=== PATIENT | male | born 1955 | race Two or more races ===

== ENCOUNTER 2018-07-10 14:59 | Inpatient (IN) | payer OTHER ==
[~2018-07-10] VITALS: Ht 170.2 cm; Wt 87.8 kg
[2018-07-10 16:21] LABS: Basophils # (auto) 0.1 uL; Basophils % (auto) 1.3 % (0.0-2.0); Eosinophils # (auto) 0.1 uL; Eosinophils % (auto) 1.1 % (0.0-7.0); Hematocrit 47.3 % (41.0-53.0); Hemoglobin 16.6 g/dL (13.5-17.5); Lymphocytes # (auto) 1.4 uL; Lymphocytes % (auto) 24.4 % (10.0-50.0); Mean Corpuscular Hemoglobin 31.4 pg (28.0-32.0); Mean Corpuscular Volume 89.7 fL (80.0-100.0); Monocytes # (auto) 0.3 uL; Monocytes % (auto) 5.1 % (0.0-12.0); Neutrophils % (auto) 68.1 % (37.0-80.0); Platelet Count (auto) 141 10^3/uL (140-450); Red Blood Cells 5.27 10^6/uL (4.5-5.90); Red Cell Distribution Width 13.5 % (11.8-14.3); White Blood Cell 5.8 10^3/uL (4.4-10.8)
[2018-07-10 16:33] LABS: Alanine Aminotransferase 19 U/L (16-61); Albumin 3.4 g/dL (3.4-5.0); Anion Gap 8 (5-15); Aspartate Aminotransferase 14 U/L (15-37); BUN/Creatinine Ratio 10.9; Blood Urea Nitrogen 10 mg/dL (7-18); Calcium 8.2 mg/dL (8.5-10.1); Carbon Dioxide 26 mmol/L (21-32); Chloride 103 mmol/L (98-107); GFR African American 107 mL/min; GFR Non-African American 88 mL/min; Glucose 254 mg/dL (74-106); Magnesium 1.9 mg/dL (1.6-2.6); Potassium 3.7 mmol/L (3.5-5.1); Sodium 137 mmol/L (136-145)
[2018-07-10 16:37] LABS: Alkaline Phosphatase 94 U/L (45-117); Bilirubin, Total 1.1 mg/dL (0.2-1.0)
[2018-07-10 17:11] LABS: INR 1.15 (0.9-1.15); Prothrombin Time 12.5 sec (9.27-12.13)
[2018-07-10 17:12] LABS: Partial Thromboplastin Time 24.7 sec (23.78-33.04)
[2018-07-10] MEDS ORDERED: LACTULOSE 20Gm/30ML SOLN PO PRN (22:00)
[2018-07-10] MEDS ORDERED: ONDANSETRON HCL 4 MG/2 ML VIAL IV PRN (22:00)
[2018-07-10] MEDS ORDERED: ACETAMINOPHEN 500 MG TAB PO PRN (22:00)
[2018-07-10] MEDS ORDERED: HYDROcodone-ACET 5/325MG TAB PO PRN (22:00)
[2018-07-10] MEDS: ATORVASTATIN 20 MG TAB PO SCH (22:28)
[2018-07-10 23:05] VITALS: BP 135/84
[2018-07-11 04:30] VITALS: BP 125/70
[2018-07-11] MEDS ORDERED: DEXTROSE (50%) 50ML SYRG IV PRN (05:00)
[2018-07-11 06:10] LABS: Basophils # (auto) 0 uL; Basophils % (auto) 1.1 % (0.0-2.0); Eosinophils # (auto) 0.1 uL; Eosinophils % (auto) 2.9 % (0.0-7.0); Hematocrit 43.2 % (41.0-53.0); Hemoglobin 15.4 g/dL (13.5-17.5); Lymphocytes # (auto) 1.5 uL; Lymphocytes % (auto) 33.1 % (10.0-50.0); Mean Corpuscular Hemoglobin 31.8 pg (28.0-32.0); Mean Corpuscular Hgb Conc. 35.6 g/dL (32.0-36.0); Mean Corpuscular Volume 89.3 fL (80.0-100.0); Monocytes # (auto) 0.3 uL; Monocytes % (auto) 7.3 % (0.0-12.0); Neutrophils # (auto) 2.6 uL; Neutrophils % (auto) 55.6 % (37.0-80.0); Nucleated Red Blood Cells % 0.2 %; Platelet Count (auto) 118 10^3/uL (140-450); Red Blood Cells 4.83 10^6/uL (4.5-5.90); White Blood Cell 4.7 10^3/uL (4.4-10.8)
[2018-07-11 06:29] LABS: BUN/Creatinine Ratio 10.2; Calcium 8.2 mg/dL (8.5-10.1); Potassium 3.6 mmol/L (3.5-5.1)
[2018-07-11] MEDS: ACCU-CHEK COMFORT CURVE STRIP VI SCH ×4 (06:40→22:00)
[2018-07-11] MEDS: InsuLIN REG 1unit/0.01ml Soln (100units/ml) SC SCH ×4 (06:40→22:00)
[2018-07-11 07:56] VITALS: BP 134/102
[2018-07-11 08:00] VITALS: BP 134/102
[2018-07-11] MEDS: ENOXAPARIN SOD 40 MG/0.4 ML SYRINGE SC SCH (08:27)
[2018-07-11] MEDS: ASPirin 81 mg TAB PO SCH (08:27)
[2018-07-11] MEDS: LISINOPRIL 10 MG TAB PO SCH (08:27)
[2018-07-11] MEDS ORDERED: amLODIPine BESYLATE 5 MG TAB PO ONE ×2 (11:45→12:45)
[2018-07-11 12:02] VITALS: BP 134/74
[2018-07-11] MEDS ORDERED: LORazepam 2MG/ML-1ML VIAL IM ONE (15:45)
[2018-07-11 16:44] VITALS: BP 120/70
[2018-07-11 21:30] VITALS: BP 111/57
[2018-07-11] MEDS: ATORVASTATIN 20 MG TAB PO SCH (23:19)
[2018-07-12 05:00] VITALS: BP 93/57
[2018-07-12] MEDS: ACCU-CHEK COMFORT CURVE STRIP VI SCH ×4 (07:00→21:57)
[2018-07-12] MEDS: InsuLIN REG 1unit/0.01ml Soln (100units/ml) SC SCH ×4 (07:00→21:57)
[2018-07-12 08:00] VITALS: BP 113/65
[2018-07-12 08:41] LABS: Urine Bacteria NONE SEEN /hpf (None Seen); Urine Blood Negative /uL (Negative); Urine Hyaline Cast FEW /lpf (0 - 2); Urine Mucus FEW (None Seen); Urine Specific Gravity 1.021 (1.001-1.035); Urine WBC 2 /hpf (0 - 3)
[2018-07-12 09:00] VITALS: BP 113/65
[2018-07-12 09:01] LABS: Alcohol, Urine < 3.0 mg/dL (0-5); Amphetamine Screen, Urine POSITIVE (NEGATIVE); Barbiturate Scree,Urine NEGATIVE (NEGATIVE); Benzodiazephine Screen, Urine NEGATIVE (NEGATIVE); Cannabinoid Screen, Urine NEGATIVE (NEGATIVE); Cocaine Screen, Urine NEGATIVE (NEGATIVE); Opiate Scree,Urine NEGATIVE (NEGATIVE); Phencyclidine Screen, Urine NEGATIVE (NEGATIVE)
[2018-07-12] MEDS: amLODIPine BESYLATE 5 MG TAB PO SCH ×2 (09:44→10:00)
[2018-07-12] MEDS: LISINOPRIL 10 MG TAB PO SCH ×2 (09:44→10:00)
[2018-07-12] MEDS: ASPirin 81 mg TAB PO SCH (09:55)
[2018-07-12] MEDS: ENOXAPARIN SOD 40 MG/0.4 ML SYRINGE SC SCH (09:55)
[2018-07-12] MEDS ORDERED: amLODIPine BESYLATE 5 MG TAB PO SCH (10:00)
[2018-07-12 13:00] VITALS: BP 139/53
[2018-07-12 17:26] VITALS: BP 127/72
[2018-07-12 21:30] VITALS: BP 128/65
[2018-07-12] MEDS: ATORVASTATIN 20 MG TAB PO SCH (22:14)
[2018-07-13 05:00] VITALS: BP 126/67
[2018-07-13] MEDS: InsuLIN REG 1unit/0.01ml Soln (100units/ml) SC SCH ×4 (07:00→22:00)
[2018-07-13] MEDS: ACCU-CHEK COMFORT CURVE STRIP VI SCH ×4 (07:04→22:00)
[2018-07-13 08:00] VITALS: BP 120/77
[2018-07-13 08:53] VITALS: BP 120/77
[2018-07-13] MEDS: amLODIPine BESYLATE 5 MG TAB PO SCH (10:00)
[2018-07-13] MEDS: LISINOPRIL 10 MG TAB PO SCH (10:00)
[2018-07-13] MEDS: ENOXAPARIN SOD 40 MG/0.4 ML SYRINGE SC SCH (10:55)
[2018-07-13] MEDS: ASPirin 81 mg TAB PO SCH (10:55)
[2018-07-13 13:00] VITALS: BP 122/71
[2018-07-13 17:04] VITALS: BP 124/70
[2018-07-13 22:00] VITALS: BP 117/71
[2018-07-13] MEDS: ATORVASTATIN 20 MG TAB PO SCH (22:00)
[2018-07-14 04:39] VITALS: BP 110/70
[2018-07-14] MEDS: InsuLIN REG 1unit/0.01ml Soln (100units/ml) SC SCH ×4 (06:52→22:00)
[2018-07-14] MEDS: ACCU-CHEK COMFORT CURVE STRIP VI SCH ×4 (06:52→22:00)
[2018-07-14 09:00] VITALS: BP 121/66
[2018-07-14] MEDS: ASPirin 81 mg TAB PO SCH (10:25)
[2018-07-14] MEDS: amLODIPine BESYLATE 5 MG TAB PO SCH (10:25)
[2018-07-14] MEDS: LISINOPRIL 10 MG TAB PO SCH (10:26)
[2018-07-14] MEDS: ENOXAPARIN SOD 40 MG/0.4 ML SYRINGE SC SCH (10:26)
[2018-07-14 13:01] VITALS: BP 131/74
[2018-07-14 16:45] VITALS: BP 106/64
[2018-07-14 22:00] VITALS: BP 114/61
[2018-07-14] MEDS: ATORVASTATIN 20 MG TAB PO SCH (22:00)
[2018-07-15 05:00] VITALS: BP 104/70
[2018-07-15] MEDS: InsuLIN REG 1unit/0.01ml Soln (100units/ml) SC SCH ×4 (07:00→21:39)
[2018-07-15] MEDS: ACCU-CHEK COMFORT CURVE STRIP VI SCH ×4 (07:27→21:39)
[2018-07-15 09:00] VITALS: BP 99/52
[2018-07-15] MEDS: amLODIPine BESYLATE 5 MG TAB PO SCH (10:00)
[2018-07-15] MEDS: LISINOPRIL 10 MG TAB PO SCH (10:00)
[2018-07-15] MEDS: ASPirin 81 mg TAB PO SCH (10:33)
[2018-07-15] MEDS: ENOXAPARIN SOD 40 MG/0.4 ML SYRINGE SC SCH (10:34)
[2018-07-15 12:49] VITALS: BP 122/69
[2018-07-15 17:00] VITALS: BP 108/70
[2018-07-15] MEDS: ATORVASTATIN 20 MG TAB PO SCH (21:39)
[2018-07-15 22:00] VITALS: BP 102/53
[2018-07-16 05:00] VITALS: BP 97/58
[2018-07-16] MEDS: InsuLIN REG 1unit/0.01ml Soln (100units/ml) SC SCH ×2 (06:16→12:18)
[2018-07-16] MEDS: ACCU-CHEK COMFORT CURVE STRIP VI SCH ×2 (06:16→12:01)
[2018-07-16 08:40] VITALS: BP 100/50
[2018-07-16] MEDS: ENOXAPARIN SOD 40 MG/0.4 ML SYRINGE SC SCH (09:10)
[2018-07-16] MEDS: ASPirin 81 mg TAB PO SCH (09:10)
[2018-07-16] MEDS: LISINOPRIL 10 MG TAB PO SCH (10:09)
[2018-07-16] MEDS: amLODIPine BESYLATE 5 MG TAB PO SCH (10:09)
[2018-07-16 13:03] VITALS: BP 101/48
== END 2018-07-16 12:30 | DRG 45 ==
LOC: EDBD 14:59 → ER 14:59 → OVERFLOW 15:00 → WEST WING 23:08
PROVIDERS: ADMIT Nurse Practitioner Family; ATTEND Internal Medicine
DX: I63.9 Cerebral infarction, unspecified (principal); I67.2 Cerebral atherosclerosis; G81.94 Hemiplegia, unspecified affecting left nondominant side; E78.5 Hyperlipidemia, unspecified; I10 Essential (primary) hypertension; F15.10 Other stimulant abuse, uncomplicated; F17.210 Nicotine dependence, cigarettes, uncomplicated; I25.10 Atherosclerotic heart disease of native coronary artery without angina pectoris; E11.9 Type 2 diabetes mellitus without complications; I25.2 Old myocardial infarction; Z82.49 Family history of ischemic heart disease and other diseases of the circulatory system; Z91.19 Patient's noncompliance with other medical treatment and regimen; Z79.899 Other long term (current) drug therapy
CPT/HCPCS: 36415; 70450; 70551; 71045; 80048; 80053; 80061; 80307; 80320; 81001; 82962; 83036; 83735; 84484; 85025; 85610; 85730; 92610; 93005; 93886; 96372; 97110; 97116; 97163; 97530; J1815

== ENCOUNTER 2024-10-16 11:03 | Emergency (ER) | payer BC, MEDICAID ==
[~2024-10-16] VITALS: Ht 172.7 cm; Wt 85.5 kg
--- NOTE | 2024-10-16 11:47 | ECG ---
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
--- NOTE | 2024-10-16 11:48 | ED.PDOC ---
History of Present Illness HPI Comments 69 Y M with PMHX of HTN, DM, HLD, and CVA presents to the ED with CC of dizziness. Patient states, that he has been experiencing intermittent dizziness x3days that worsens with exertion. Patient relays, that when he stands he feels as if he is going to pass-out. Patient additionally c/o left heal laceration which he believes is infected; and contributes to unsteadiness on his feet. Patient's vital signs are stable and accu-chek read at 166. Patient denies chest pain, shortness of breath, or N/V/D. Chief Complaint: Dizziness Time Seen by MD: 11:33 Primary Care Provider: SNEHAL ARVIZU Reviewed Notes: Nurses Notes, Medications, Allergies Allergies: Coded Allergies: NO KNOWN ALLERGIES (Unverified , 07/10/18) Home Meds Active Scripts Doxycycline Hyclate (DOXYCYCLINE HYCLATE) 100 Mg Tab, 1 TAB PO BID, #20 TAB 0 Refills Prov:ALEX BANEGAS DO 10/16/24 Mode of Arrival: Ambulatory Severity: Moderate Timing: Days Duration: Since onset Prehospital treatment: None Past Medical History PAST MEDICAL HISTORY: CAD, CVA, DM, High Lipids, HTN Surgical History: Denies all surgeries Family History Family History: No family hx of HTN Social History Smoker: Cigarettes, Less Than 1 Pack/Day Alcohol: Rarely Drugs: Methamphetamine Lives In: Home Constitutional: reports: weakness; denies: chills, diaphoresis, fatigue, fever, malaise, sweats, others EENTM: denies: blurred vision, double vision, ear bleeding, ear discharge, ear drainage, ear pain, ear ringing, eye pain, eye redness, hearing loss, mouth pain, mouth swelling, nasal discharge, nose bleeding, nose congestion, nose pain, photophobia, tearing, throat pain, throat swelling, voice changes, others Respiratory: denies: cough, hemoptysis, orthopnea, SOB at rest, shortness of breath, SOB with excertion, stridor, wheezing, others Cardiovascular: denies: chest pain, dizzy spells, diaphoresis, Dyspnea on exertion, edema, irregular heart beat, left arm pain, lightheadedness, pal pitations, PND, syncope, others Gastrointestinal: denies: abdomen distended, abdominal pain, blood streaked bowels, constipated, diarrhea, dysphagia, difficulty swallowing, hematemesis, melena, nausea, poor appetite, poor fluid intake, rectal bleeding, rectal pain, vomiting, others Genitourinary: denies: burning, dysuria, flank pain, frequency, hematuria, incontinence, penile discharge, penile sore, pain, testicle pain, testicle swelling, urgency, others Neurological: reports: dizziness; denies: fainting, headache, left sided numbness, left sided weakness, numbness, paresthesia, pre-existing deficit, right sided numbness, right sided weakness, seizure, speech problems, tingling, tremors, weakness, others Musculoskeletal: denies: back pain, gout, joint pain, joint swelling, muscle pain, muscle stiffness, neck pain, others Integumetry: reports: laceration (LEFT HEAL); denies: bruises, change in color, change in hair/nails, dryness, lesions, lumps, rash, wounds, others Allergic/Immunocompromised: denies: Difficulty Healing, Frequent Infections, Hives, Itching, others Hematologic/Lymphatic: denies: anemia, blood clots, easy bleeding, easy bruising, swollen glands, others Endocrine: denies: excessive hunger, excessive sweating, excessive thirst, excessive urination, flushing, intolerance to cold, intolerance to heat, unexplained weight gain, unexplained weight loss, others Psychiatric: denies: anxiety, bipolar disorder, depression, hopeless, panic disorder, schizophrenia, sleepless, suicidal, others All Other Systems: Reviewed and Negative Physical Exam General Appearance: Mild Distress HEENT: Normal ENT Inspection, Pharynx Normal, TMs Normal Neck: Full Range of Motion, Non-Tender, Normal, Normal Inspection Respiratory: Chest Non-Tender, Lungs Clear, No Accessory Muscle Use, No Respiratory Distress, Normal Breath Sounds Cardiovascular: No Edema, No JVD, No Murmur, No Gallop, Normal Peripheral Pulses, Regular Rate/Rhythm Breast Exam: Deferred Gastrointestinal: No Organomegaly, Non Tender, No Pulsatile Mass, Normal Bowel Sounds, Soft Genitalia: Deferred Pelvic: Deferred Rectal: Deferred Extremities: No calf tenderness, Normal capillary refill, Normal inspection, Normal range of motion, Non-tender, No pedal edema Musculoskeletal : Apperance: Normal 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 Was a procedure done?: No EKG EKG : Pulse Rate (adult): 93 [place]: Normal Cardiac Rhythm: Afib Block: None Hypertrophy: None ST: Normal Differential Dx Considerations may include: left heal infection, A-FIB, X-Ray, Labs, Meds, VS Vital Signs Date Time Temp Pulse Resp B/P (MAP) Pulse Ox O2 Delivery O2 Flow Rate FiO2 10/16/24 17:35 86 16 97 Room Air 10/16/24 17:35 97.9 86 16 109/54 (72) 97 97.9 10/16/24 14:51 66 20 97 Room Air* 0 21 10/16/24 13:56 98.6 83 16 87/55 (66) 95 98.6 10/16/24 11:48 93 10/16/24 11:31 93 10/16/24 11:26 98.4 99 14 131/66 (87) 100 Lab Test 10/16/24 12:29 10/16/24 11:30 10/16/24 11:24 Range/Units White Blood Count 4.9 4.4-10.8 10^3/uL Red Blood Count 5.20 4.5-5.90 10^6/uL Hemoglobin 16.2 13.5-17.5 g/dL Hematocrit 46.3 41.0-53.0 % Mean Corpuscular Volume 89.0 80.0-100.0 fL Mean Corpuscular Hemoglobin 31.2 28.0-32.0 pg Mean Corpuscular Hemoglobin Concent 35.1 32.0-36.0 g/dL Red Cell Distribution Width 13.8 11.8-14.3 % Platelet Count 135 L 140-450 10^3/uL Mean Platelet Volume 8.9 6.9-10.8 fL Neutrophils (%) (Auto) 52.4 37.0-80.0 % Lymphocytes (%) (Auto) 35.4 10.0-50.0 % Monocytes (%) (Auto) 7.1 0.0-12.0 % Eosinophils (%) (Auto) 3.4 0.0-7.0 % Basophils (%) (Auto) 1.7 0.0-2.0 % Neutrophils # (Auto) 2.6 1.6-8.6 10 ^3/uL Lymphocytes # (Auto) 1.7 0.4-5.4 10 ^3/uL Monocytes # (Auto) 0.4 0-1.3 10 ^3/uL Eosinophils # (Auto) 0.2 0-0.8 10 ^3/uL Basophils # (Auto) 0.1 0-0.2 10 ^3/uL Nucleated Red Blood Cells 0.3 % Erythrocyte Sedimentation Rate 2 0-20 mm/hr Sodium Level 136 136-145 mmol/L Potassium Level 3.9 3.5-5.1 mmol/L Chloride Level 100 98-107 mmol/L Carbon Dioxide Level 30 20-31 mmol/L Anion Gap 6 5-15 Blood Urea Nitrogen 15 9-23 mg/dL Creatinine 1.62 H 0.700-1.30 mg/dL Glomerular Filtration Rate Calc 45 >90 mL/min BUN/Creatinine Ratio 9.3 L 10.0-20.0 Serum Glucose 156 H 74-106 mg/dL Calcium Level 10.1 8.7-10.4 mg/dL Urine Color Yellow Yellow Urine Clarity Clear Clear Urine pH 5.5 5.0-9.0 Urine Specific [place] 1.026 1.001-1.035 Urine Protein Trace H Negative Urine Ketones Trace Negative Urine Blood Negative Negative /uL Urine Nitrite Negative Negative Urine Bilirubin Negative Negative Urine Urobilinogen 6 Negative mg/dL Urine Leukocyte Esterase Negative Negative /uL Urine RBC <1 0 - 3 /hpf Urine WBC 1 0 - 3 /hpf Urine Squamous Epithelial Cells Few <5 /hpf Urine Bacteria None seen None Seen /hpf Urine Hyaline Casts Mod 0 - 2 /lpf Urine Mucus Few None Seen Urine Glucose Trace Normal mg/dL POC Glucose 166 H 70-106 mg/dl Current Medications Medications (Trade) Dose Ordered Sig/[place] Route Start Time Stop Time Status Last Admin Sodium Chloride 1,000 ml @ 1,000 mls/hr Q1H ONCE IV 10/16/24 17:45 10/16/24 18:44 DC 10/16/24 18:42 Ertapenem 0.5 gm/ Sodium Chloride 50 ml @ 100 mls/hr ONCE ONCE IV 10/16/24 18:30 10/16/24 18:59 DC 10/16/24 19:58 L FT XR: FINDINGS/IMPRESSION: There is no evidence of acute fracture or dislocation. No radiographic evidence of cortical destruction to suggest osteomyelitis. The visualized joint space is well maintained. The alignment is anatomical. There is no radiopaque foreign body. ATED BY: VINICIO DEE MD DICTATED DATE/TIME: 10/16/241244 SIGNED BY: VINICIO DEE MD SIGNED DATE/TIME: 10/16/241244 HEAD CT: CC: FINDINGS: There is no evidence of acute intracranial hemorrhage, mass, mass effect midline shift. There is no hydrocephalus or extra-axial fluid collection. Rodrigues-white matter differentiation is maintained. The visualized paranasal sinuses and mastoid air cells are clear. The calvarium is intact. IMPRESSION: 1. No acute intracranial process. HS:Y At this time, the patient's urine test is negative The patient was given a 1 L bolus of normal saline The patient was started on IV antibiotics here in the emergency department's The CBC and chemistry panel are within normal limits At this time the patient was being disposition by the [facility] The patient was being discharged Images Reviewed?: Images reviewed and evaluated by me Time of 1ST Reevaluation: 12:03 Reevaluation 1ST: Unchanged Patient Education/Counseling: Diagnosis, Treatment, Prognosis Family Education/Counseling: No Family Present Additional Information - I reviewed the following notes from patient's past medical encounters: 07/10/18 DX: CVA/TIA - The following tests were ordered, and results were reviewed by me: LABS, HEAD CT, L FT XR, EKG - I reviewed and agreed with the following test results read by other provider: HEAD CT, L FT XR - I discussed treatments and results with medical personnel and: PATIENT Departure 1 Departure Time of Disposition: 20:11 Impression: Primary Impression: Generalized weakness Disposition: HOME / SELF CARE / HOMELESS Condition: Fair e-Prescriptions Doxycycline Hyclate (DOXYCYCLINE HYCLATE) 100 Mg Tab 1 TAB PO BID, #20 TAB 0 Refills Prov: MAKENZIEALEX Home 10/16/24 Discharged With: Self Critical Care Note Critical Care Time?: No Stability Stability form required: No Heart Score Heart Score: Heart Score Response (Comments) Value History N/A 0 EKG N/A 0 Age N/A 0 Risk Factors N/A 0 Troponin N/A 0 Total 0 I personally scribed for RAPHAEL SORIA MD ([email or web address]) on 10/16/24 at 11:48. Electronically submitted by Sue Lopez ([email or web address]). I personally scribed for RAPHAEL SORIA MD ([email or web address]) on 10/16/24 at 12:31. Electronically submitted by Sue Lopez ([email or web address]). I personally scribed for RAPHAEL SORIA MD ([email or web address]) on 10/16/24 at 12:33. Electronically submitted by Sue Lopez ([email or web address]). I personally scribed for RAPHAEL SORIA MD ([email or web address]) on 10/16/24 at 12:33. Electronically submitted by Sue Lopez ([email or web address]). I personally scribed for RAPHAEL SORIA MD ([email or web address]) on 10/16/24 at 13:00. El ectronically submitted by Sue Lopez ([email or web address]). I personally scribed for RAPHAEL SORIA MD ([email or web address]) on 10/16/24 at 13:11. Elec tronically submitted by Sue Lopez [email or web address]). RAPHAEL SORIA MD Oct 16, 2024 11:48
--- NOTE | 2024-10-16 12:46 | DVH ---
CLINICAL INDICATION: infection , pain TECHNIQUE: 2 radiographic views of the left foot were obtained. Comparison: None FINDINGS/IMPRESSION: There is no evidence of acute fracture or dislocation. No radiographic evidence of cortical destructi on to suggest osteomyelitis. The visualized joint space is well maintained. The alignment is anatomical. There is no radiopaque foreign body.
--- NOTE | 2024-10-16 12:49 | DVH ---
EXAM: CT HEAD WITHOUT CONTRAST HISTORY: dizziness COMPARISON: None TECHNIQUE: Axial images of the head were obtained and reformatted in coronal and sagittal planes. All CT scans at this medical facility are performed using dose modulation techniques as appropriate t o a performed exam including the following: Automated exposure control was utilized; adjustment of th e MA and/or KV according to patient size; and use of iterative reconstruction technique. CT Dose: CTDI volume is 58.45 mGy. Dose-length product is 1151.77 mGy*cm FINDINGS: There is no evidence of acute intracranial hemorrhage, mass, mass effect midline shift. There is no h ydrocephalus or extra-axial fluid collection. Rodrigues-white matter differentiation is maintained. The visualized paranasal sinuses and mastoid air cells are clear. The calvarium is intact. IMPRESSION: 1. No acute intracranial process. HS:Y
[2024-10-16 13:05] LABS: Basophils # (auto) 0.1 10 ^3/uL (0-0.2); Basophils % (auto) 1.7 % (0.0-2.0); Eosinophils # (auto) 0.2 10 ^3/uL (0-0.8); Eosinophils % (auto) 3.4 % (0.0-7.0); Hematocrit 46.3 % (41.0-53.0); Hemoglobin 16.2 g/dL (13.5-17.5); Lymphocytes # (auto) 1.7 10 ^3/uL (0.4-5.4); Lymphocytes % (auto) 35.4 % (10.0-50.0); Mean Corpuscular Hemoglobin 31.2 pg (28.0-32.0); Mean Corpuscular Hgb Conc. 35.1 g/dL (32.0-36.0); Monocytes # (auto) 0.4 10 ^3/uL (0-1.3); Monocytes % (auto) 7.1 % (0.0-12.0); Neutrophils # (auto) 2.6 10 ^3/uL (1.6-8.6); Neutrophils % (auto) 52.4 % (37.0-80.0); Nucleated Red Blood Cells % 0.3 %; Platelet Count (auto) 135 10^3/uL (140-450); Red Cell Distribution Width 13.8 % (11.8-14.3); White Blood Cell 4.9 10^3/uL (4.4-10.8)
[2024-10-16 13:12] LABS: Anion Gap 6 (5-15); Carbon Dioxide 30 mmol/L (20-31); Chloride 100 mmol/L (98-107); Potassium 3.9 mmol/L (3.5-5.1); Sodium 136 mmol/L (136-145)
[2024-10-16 13:13] LABS: Calcium 10.1 mg/dL (8.7-10.4)
[2024-10-16 13:17] LABS: Urine Bacteria None Seen /hpf (None Seen)
[2024-10-16 13:18] LABS: BUN/Creatinine Ratio 9.3 (10.0-20.0); Blood Urea Nitrogen 15 mg/dL (9-23)
[2024-10-16 13:22] LABS: Glucose 156 mg/dL (74-106)
[2024-10-16 13:43] LABS: Erythrocyte Sedimentation Rate 2 mm/hr (0-20)
[2024-10-16 14:14] LABS: Urine Blood Negative /uL (Negative); Urine Clarity Clear (Clear); Urine Color Yellow (Yellow); Urine Hyaline Cast MOD /lpf (0 - 2); Urine Mucus FEW (None Seen); Urine Protein, UAD TRACE (Negative); Urine Specific Gravity 1.026 (1.001-1.035); Urine Squamous Epithelial Cell FEW /hpf (<5); Urine Urobilinogen 6 mg/dL (Negative); Urine WBC 1 /hpf (0 - 3); Urine pH 5.5 (5.0-9.0)
[2024-10-16 14:51] VITALS: PULSE 66; RESP 20; O2SAT 97
[2024-10-16 17:35] VITALS: BP 109/54; RESP 16; TEMP 97.9; O2SAT 97
[2024-10-16] MEDS: MECLIZINE HCL 25 MG TAB PO ONE (17:45)
[2024-10-16] MEDS: SODIUM CHLORIDE 0.9% 1,000 ML IV ONE (18:42)
[2024-10-16] MEDS: ERTAPENEM SOD INJ 0.5 GM in SODIUM CHL 0.9% 50 ML IV ONE (19:58)
[2024-10-16] MEDS ORDERED: DOXY-286 PO (20:04)
[2024-10-16 20:19] VITALS: PULSE 86
--- NOTE | 2024-10-16 21:04 | DVHDS2 ---
Discharge Summary Date of Admission Date of Discharge: Oct 16, 2024 Labs/Diagnostic Data: Laboratory Results Test 10/16/24 12:29 10/16/24 11:30 10/16/24 11:24 White Blood Count 4.9 10^3/uL (4.4-10.8) Red Blood Count 5.20 10^6/uL (4.5-5.90) Hemoglobin 16.2 g/dL (13.5-17.5) Hematocrit 46.3 % (41.0-53.0) Mean Corpuscular Volume 89.0 fL (80.0-100.0) Mean Corpuscular Hemoglobin 31.2 pg (28.0-32.0) Mean Corpuscular Hemoglobin Concent 35.1 g/dL (32.0-36.0) Red Cell Distribution Width 13.8 % (11.8-14.3) Platelet Count 135 10^3/uL (140-450) Mean Platelet Volume 8.9 fL (6.9-10.8) Neutrophils (%) (Auto) 52.4 % (37.0-80.0) Lymphocytes (%) (Auto) 35.4 % (10.0-50.0) Monocytes (%) (Auto) 7.1 % (0.0-12.0) Eosinophils (%) (Auto) 3.4 % (0.0-7.0) Basophils (%) (Auto) 1.7 % (0.0-2.0) Neutrophils # (Auto) 2.6 10 ^3/uL (1.6-8.6) Lymphocytes # (Auto) 1.7 10 ^3/uL (0.4-5.4) Monocytes # (Auto) 0.4 10 ^3/uL (0-1.3) Eosinophils # (Auto) 0.2 10 ^3/uL (0-0.8) Basophils # (Auto) 0.1 10 ^3/uL (0-0.2) Nucleated Red Blood Cells 0.3 % Erythrocyte Sedimentation Rate 2 mm/hr (0-20) Sodium Level 136 mmol/L (136-145) Potassium Level 3.9 mmol/L (3.5-5.1) Chloride Level 100 mmol/L (98-107) Carbon Dioxide Level 30 mmol/L (20-31) Anion Gap 6 (5-15) Blood Urea Nitrogen 15 mg/dL (9-23) Creatinine 1.62 mg/dL (0.700-1.30) Glomerular Filtration Rate Calc 45 mL/min (>90) BUN/Creatinine Ratio 9.3 (10.0-20.0) Serum Glucose 156 mg/dL (74-106) Calcium Level 10.1 mg/dL (8.7-10.4) Urine Color Yellow (Yellow) Urine Clarity Clear (Clear) Urine pH 5.5 (5.0-9.0) Urine Specific [place] 1.026 (1.001-1.035) Urine Protein Trace (Negative) Urine Ketones Trace (Negative) Urine Blood Negative /uL (Negative) Urine Nitrite Negative (Negative) Urine Bilirubin Negative (Negative) Urine Urobilinogen 6 mg/dL (Negative) Urine Leukocyte Esterase Negative /uL (Negative) Urine RBC <1 /hpf (0 - 3) Urine WBC 1 /hpf (0 - 3) Urine Squamous Epithelial Cells Few /hpf (<5) Urine Bacteria None seen /hpf (None Seen) Urine Hyaline Casts Mod /lpf (0 - 2) Urine Mucus Few (None Seen) Urine Glucose Trace mg/dL (Normal) POC Glucose 166 mg/dl (70-106) Other Laboratory Tests 10/16/24 12:29 Brief Hx & Hospital Course: Patient is a 69-year-old medical history of hypertension, CHF, type 2 diabetes who presents with complaints of left foot pain and occasional dizziness upon standing. Patient presented to the ER with vitals within normal limits with the exception of one-time blood pressure reading of 87/55. Patient was asymptomatic in the ER in regards to his dizziness. Patient was given 1 L NS bolus. CBC did not reveal any leukocytosis. BMP was notable for renal function of BUN/creatinine 15/1.62. UA revealed trace protein. It is unknown what patient's baseline is but this may be secondary to CKD from diabetic nephropathy. Patient underwent x-ray of the left foot which did not reveal any acute fracture or dislocation. There is no radiographic evidence of cortical destruction to suggest osteomyelitis. Patient's foot was assessed at bedside and was notable for cracking of the skin with some tenderness at the heel. No erythema, discharge or fluctuance was noted. Given patient's history of type 2 diabetes risk for infection with skin cracking, patient was given ertapenem 500 mg IV x 1. He was discharged on doxycycline 100 mg p.o. twice daily for 10 days. Patient's EKG initially suggested atrial fibrillation but had significant artifact. EKG was repeated which showed sinus rhythm with some PVCs. Patient's dizziness may be related to his antihypertensives. Patient was advised to follow-up with his PCP for titration. Patient was discharged in stable condition. He is to follow-up with cardiology and podiatry and nephrology. [facility] case management arrange follow-up appointments. Condition at Discharge: Good Final Diagnosis/Problems List Foot Lesion Secondary Diagnosis: Type 2 Diabetes Dizziness Discharge Disposition: Home Discharge Instruct/Medications Diet: Consistent carbohydrate Activity: No Restrictions, As Tolerated Follow Up/Referral: Follow up with podiatry. Follow up with cardiology. Follow up with nephrology. Medications: Doxycycline 100mg twice a day for 10 days. Discharge Statement: "Patient was advised to return to the ER or call 911 if any headaches, dizziness, shortness of breath, chest pain, abdominal pain, bleeding, fevers, or worsening of medical condition. Patient was counseled about treatment plan, medications, possible side effects, patientverbalized understanding. All questions were answered to the best of my ability. This discharge took greater then 30 minutes in planning, reviewing documentation, counseling the patient, and discussing with other team members." ASSESSMENT ASSESSMENT Assessment Foot Lesion ALEX BANEGAS DO Oct 16, 2024 21:04
--- NOTE | 2024-10-17 06:42 | ECG ---
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
== END 2024-10-16 20:36 | disposition home or self-care (01) ==
LOC: ER 11:03
DX: R53.1 Weakness (principal); E11.9 Type 2 diabetes mellitus without complications; E78.5 Hyperlipidemia, unspecified; I10 Essential (primary) hypertension; F15.90 Other stimulant use, unspecified, uncomplicated; F12.90 Cannabis use, unspecified, uncomplicated; Z86.73 Personal history of transient ischemic attack (TIA), and cerebral infarction without residual deficits
CPT/HCPCS: 36415; 70450; 73620; 80048; 81001; 82962; 85025; 85652; 93005; 96361; 96365; 99285; J1335; J7030